=== PATIENT | female | born 1950 ===

== ENCOUNTER 2022-02-15 10:15 | Inpatient (IN) | payer OTHER ==
[~2022-02-15] VITALS: Ht 167.6 cm; Wt 105.2 kg
[2022-02-15] MEDS ORDERED: HYDROCHLOROTHIA25 MG PO (13:47)
[2022-02-15] MEDS ORDERED: COZAAR50 MG PO (13:47)
[2022-02-15] MEDS ORDERED: ATORVASTATIN CA20 MG PO (13:48)
== END 2022-02-22 16:57 | disposition home or self-care (01) | DRG 470 ==
LOC: EDBD 02-20 10:15 → SURH 02-20 10:15 → O/R 02-20 10:18 → SURH 02-20 13:00
PROVIDERS: ADMIT Orthopaedic Surgery; ATTEND Orthopaedic Surgery
PROC: 0SRD0J9 Replacement of Left Knee Joint with Synthetic Substitute, Cemented, Open Approach (ICD-10-PCS; principal; 2022-02-20 13:00)
DX: M17.12 Unilateral primary osteoarthritis, left knee (principal); D62 Acute posthemorrhagic anemia; M85.662 Other cyst of bone, left lower leg; I10 Essential (primary) hypertension; E66.8 Other obesity